=== PATIENT | male | born 1990 | race Caucasian/White ===

== ENCOUNTER 2017-10-01 06:16 | Emergency (ER) | payer OTHER ==
[~2017-10-01] VITALS: Ht 170.2 cm; Wt 77.1 kg
[2017-10-01 06:16] VITALS: BP_SYST 151
[2017-10-01 07:06] VITALS: BP_SYST 143
== END 2017-10-01 07:06 | disposition home or self-care (01) ==
LOC: SED 06:16
DX: Z02.89 Encounter for other administrative examinations (principal)